=== PATIENT | male | born 1955 | race Caucasian/White ===

== ENCOUNTER → 2019-04-07 | Outpatient (CLI) | payer BC ==
[2019-04-07 12:32] VITALS: BP 147/92; PULSE 72; RESP 16
--- NOTE | 2019-04-11 14:07 | P.PAINCN ---
History of Present Illness - Reason for Consult Consult date: 04/07/19 - History of Present Illness This is a 63-year-old patient referred by Dr. Narayan with a chief complaint of chronic pain in bilateral low back with radiation to left buttock, hip, posterior thigh, left groin and top of left foot. Posterior leg pain is worse than anterior leg pain. Patient states that this pain started in December 2018, after he lifted a deer. He also states that he feels like his leg "wants to give out". He endorses bilateral feet numbness which is long-standing. Leg pain is worse than back pain. His primary care physician gave him a steroid dose pack as well as a left hip/greater trochanter injection which helped for approximately 7 days. Patient has been taking medications from primary care physician including gabapentin 300 mg 3 times a day, this was started recently, patient states is not helping. He was also prescribed [place] 7.5 mg 3 times a day when necessary, however he has not yet used this. Patient denies adverse drug effects from medications. Patient also denies new-onset weakness, bowel/bladder incontinence, or any other signs or symptoms of cauda equina syndrome. There are no signs of acute intoxication, and no indications of medication diversion or overuse. Patient has not had surgery. Patient has not had injections previously. Patient has not had physical therapy recently, he states he cannot afford it. In addition to above, 13-point review of systems is also negative for chest pain, shortness of breath, changes in vision, changes in hearing, new onset weakness, abdominal pain, diarrhea, extreme fatigue, malaise, fever, skin change s, homicidal or suicidal ideation, or bowel or bladder incontinence. Physical exam: Vital Signs: Reviewed in EMR GENERAL: Well appearing, in no acute distress PSYCH: Mood and affect is appropriate. Awake, alert, and oriented SKIN: Skin color, texture, turgor normal, no rashes or lesions HEENT: Normocephalic, atraumatic. EOM intact CV: No pedal edema RESP: Respirations are unlabored, no audible wheezing GI: Abdomen non-distended MUSCULOSKELETAL: Bilateral lower extremity strength is normal and symmetric. No atrophy or tone abnormalities are noted. Lumbar spine: Straight leg raising in the sitting position is positive on the left side for radicular pain. Tenderness to palpation over the lumbar spine and paraspinous muscles, on the left side. Positive for pain with facet loading and back extension/rotation. Extremities: Peripheral joint ROM is full and pain free without obvious instability or laxity in all four extremities. No edema or skin discolorations noted. Gait: Gait is normal NEUR: Bilateral lower extremity coordination and muscle stretch reflexes are physiologic and symmetric. Negative clonus. No loss of sensation is noted. Cranial nerves are grossly intact. Imaging: MRI lumbar spine done at [facility] on 03/19/2019 shows multilevel disc bulging and spondylosis with mild central canal stenosis at L3-4. At L3-4 there is moderate circumferential disc bulge, mild left and moderate right foraminal stenosis. At L4-5 mild circumferential disc bulge, moderate bilateral neuroforaminal stenosis, L5-S1 disc bulge with posterior annular fissure, mild to moderate bilateral foraminal stenosis. Assessment: 1. Lumbar radicular pain 2. Lumbar degenerative disc disease 3. Lumbar spondylosis Plan: 1. Explanation: Diagnoses, prognoses, and multiple treatment options including but not limited to physical therapy, interventional therapies, medication management and surgery were discussed with the patient and all questions were answered to the patient's satisfaction. 2. Investigations: MRI lumbar spine reviewed 3. Counseling: None 4. Procedures: We will schedule left-sided L4-5 and L5-S1 transforaminal epidural steroid injection. 5. Consultations: None 6. Medications: Managed by primary care physician, no changes 7. Disposition: For above-mentioned procedure I will have my note faxed over to referring provider, Dr. Barth office. Past Medical History Past Medical History: Cancer, Hyperlipidemia, Hypertension, Osteoarthritis (OA) Additional Past Medical History / Comment(s): BACK PAIN. PROSTATE CANCER History of Any Multi-Drug Resistant Organisms: None Reported Past Surgical History: Hernia Repair, Tonsillectomy Additional Past Surgical History / Comment(s): PROSTATECTOMY Past Anesthesia/Blood Transfusion Reactions: No Reported Reaction Smoking Status: Never smoker - Past Family History Mother Family Medical History: No Reported History Medications and Allergies Home Medications Medication Instructions Recorded Confirmed Type Aspirin [Adult Low Dose Aspirin EC] 81 mg PO DAILY 04/06/19 04/07/19 History Atorvastatin [Lipitor] 20 mg PO HS 04/06/19 04/07/19 History Gabapentin [Neurontin] 300 mg PO TID 04/06/19 04/07/19 History HYDROcodone/APAP 7.5-325MG [[place] 1 tab PO TID PRN 04/06/19 04/07/19 History 7.5-325] Methocarbamol [Robaxin] 750 mg PO TID PRN 04/06/19 04/07/19 History Metoprolol Tartrate [Lopressor] 25 mg PO BID 04/06/19 04/07/19 History Multivitamins, Thera [Multivitamin 1 tab PO DAILY 04/06/19 04/07/19 History (formulary)] amLODIPine [Norvasc] 10 mg PO DAILY 04/06/19 04/07/19 History Allergies Allergy/AdvReac Type Severity Reaction Status Date / Time No Known Allergies Allergy Verified 04/07/19 12:20 Physical Exam Vitals: Intake and Output 04/06/19 04/07/19 04/07/19 22:59 06:59 14:59 Other: Weight 95.254 kg PQRS Measure Charge Sheet Measure #130: Documentation of Current Meds in Medical Chart: Patient's medications documented in chart Measure #226: Tobacco Use: Screen & Cessation Intervention: Pt not a tobacco user Measure #111: Pneumonia Vaccination: Pneumococcal vaccine NOT administered or previously given Measure #47: Advance Care Plan: Advance care planning discussed & documented, pt chose/unable to give Measure #412: Opioid Treatment Agreement: No documentation of signed opioid treatment agreement Measure #408: Opioid Therapy Follow-up Evaluation: Patient had NO f/u eval minimum every 3 months during opioid therapy Measure #317: Preventitive Care & Scrn High Bld Press & F/U: Pre-hypertensive or hypertensive BP documented, pt will f/u with PCP Measure #128: Body Mass Index (BMI) Screening & Follow-up: BMI documented ABOVE normal parameters - f/u documented Measure #131: Pain Assessment & Follow-up: Pain positive & plan documented, Follow-up scheduled Measure #431: Unhealthy Alcohol Use Preventative Care & Scrn: Patient not identified as an unhealthy alcohol user PQRS Narrative: Smoking Status Never smoker Pain Intensity [Lower Back] 4 Scale Used Numeric (1 - 10) Hx Alcohol Use (MH) Yes: DRINKS DAILY Home Medications: Ambulatory Orders Aspirin [Adult Low Dose Aspirin EC] 81 mg PO DAILY 04/06/19 Atorvastatin [Lipitor] 20 mg PO HS 04/06/19 Gabapentin [Neurontin] 300 mg PO TID 04/06/19 HYDROcodone/APAP 7.5-325MG [[place] 7.5-325] 1 tab PO TID PRN 04/06/19 Methocarbamol [Robaxin] 750 mg PO TID PRN 04/06/19 Metoprolol Tartrate [Lopressor] 25 mg PO BID 04/06/19 Multivitamins, Thera [Multivitamin (formulary)] 1 tab PO DAILY 04/06/19 amLODIPine [Norvasc] 10 mg PO DAILY 04/06/19
== END | disposition home or self-care (01) ==
LOC: PNWHC3 11:49
PROVIDERS: ATTEND Anesthesiology
DX: G89.29 Other chronic pain (principal); M51.16 Intervertebral disc disorders with radiculopathy, lumbar region; M47.26 Other spondylosis with radiculopathy, lumbar region; Z79.82 Long term (current) use of aspirin; Z79.899 Other long term (current) drug therapy
CPT/HCPCS: 99201

== ENCOUNTER 2019-04-14 07:28 | Day surgery (SDC) | payer BC ==
[2019-04-13 12:04] VITALS: BMI 31.9
[~2019-04-14 07:28] MED LIST: LACTATED RINGERS 1,000 ML IV SCH
[2019-04-14 08:14] VITALS: RESP 16; TEMP 97.8
[2019-04-14] MEDS ORDERED: LACTATED RINGERS 1,000 ML IV ONE (08:16)
[2019-04-14] MEDS ORDERED: LIDOCAINE 1% 20 ML VIAL (10MG/ML) FOR IV START INTRADERMA ONE (08:17)
[2019-04-14] MEDS ORDERED: IOPAMIDOL M200 10 ML VIAL ONE (09:17)
[2019-04-14] MEDS ORDERED: fentaNYL (PF) 50 MCG/ML 2 ML AMP ONE (09:17)
[2019-04-14] MEDS ORDERED: methylPREDNISolone ACETATE 40 MG/ML 1 ML VIAL ONE (09:17)
[2019-04-14] MEDS ORDERED: MIDAZOLAM 2 MG/2 ML VIAL ONE (09:17)
--- NOTE | 2019-04-14 09:33 | P.PCN ---
Date of Procedure: 04/14/19 Procedure(s) Performed: PREOPERATIVE DIAGNOSIS: 1-Lumbar radiculopathy. 2-lumbar degenerative disc disease. 3-lumbar spondylosis with lumbar facet arthropathy POSTOPERATIVE DIAGNOSIS: Same as preop diagnosis PROCEDURE 1. Transforaminal epidural steroid injection under fluoroscopic guidance at left-sided L4 5, and L5-S1 (Fluoroscopy images stored on file in the radiology Department ) 2. Lumbar epidurogram : ANESTHESIA: Local with 1% lidocaine 3 ml , moderate sedation with intravenous Ve rsed 2 mg and fentanyle 50 micrograms EBL: Minimal PROCEDURE INDICATION: The patient with low back pain and radiculopathy symptoms unresponsive to conservative treatment. PROCEDURE DESCRIPTION / TECHNIQUE: The patient was seen and identified in the preoperative area. Risks, benefits, complications, and alternatives were discussed with the patient. The patient agreed to proceed with the procedure and signed the consent. IV was started, and vital signs were stable. Patient was taken to the OR and time out was completed. The patient was placed in the prone position on procedure table and a pillow was placed under the abdomen to reduce lumbar lordosis. The lumbosacral area was prepped and draped in the usual sterile fashion. Critical pause was taken. Vital signs were closely monitored during the procedure. Conscious sedation was used during the procedure to decrease patient s anxiety. Using oblique fluoroscopy, the chin of the ``[place] dog at left L4 5 level was identified, and the skin and deeper tissues just below was localized with 1% lidocaine. Subsequently, a 22-gauge 3.5-inch spinal needle was advanced under a tunneled view fluoroscopic guidance just underneath the chin of the `[place] dog at the left L4 5. Under lateral fluoroscopy, the needle was then advanced to the posterior border of the left L4 5 interforaminal space. After negative aspiration of CSF and blood and with no paresthesias, 1 mL Isovue 200 contrast dye was injected excellent epidurogram and outlining of the nerve root Subsequently, 3 mL of block solution containing 40 mg Depo-Medrol and 2 mL of Lidocaine 1% was injected. Needle was removed and the same procedure was repeated at the left L5-S1 level (s). At the end of the procedure, skin was cleansed, and bandages were applied. COMPLICATIONS:none DISPOSITION / PLANS: The patient was placed in a supine position and transferred to the recovery area in a stable condition for observation. There was no evidence of lower extremity motor or sensory deficit after the procedure. Patient was discharged from the recovery room after meeting discharge criteria. Home discharge instructions were given to the patient by the staff. The patient was reexamined prior to discharge.
--- NOTE | 2019-04-14 09:44 | FL ---
EXAMINATION TYPE: FL guided pain mgmt statistic DATE OF EXAM: 04/14/2019 CLINICAL HISTORY: Low back pain. TECHNIQUE: Fluoroscopy. COMPARISON: None. FINDINGS: Fluoroscopic guidance was provided during pain relief procedure performed by Dr. Sparks . A total of 6 seconds of fluoroscopic time was utilized during the procedure and single spot image is acquired. Single image acquired shows needle localization right L4 and L5 levels with contrast in jection. IMPRESSION: As Above.
[2019-04-14 09:57] VITALS: BP 136/77; PULSE 67
[2019-04-14] MEDS ORDERED: IV FLUID CONTINUATION 1,000 ML IV ONE (09:58)
== END 2019-04-14 09:59 | disposition home or self-care (01) ==
LOC: ORPAIN 07:28
PROVIDERS: ATTEND Specialist
DX: M51.16 Intervertebral disc disorders with radiculopathy, lumbar region (principal); M47.26 Other spondylosis with radiculopathy, lumbar region
CPT/HCPCS: 64483; 64484; J2250; J1030; J3010; Q9966; 99152

== ENCOUNTER 2019-04-28 07:11 | Day surgery (SDC) | payer BC ==
[2019-04-27 10:37] VITALS: BMI 31.4
[2019-04-28 07:33] VITALS: RESP 16; TEMP 98.2
[2019-04-28] MEDS ORDERED: LIDOCAINE 1% (10MG/ML) FOR IV START INTRADERMA ONE (07:42)
--- NOTE | 2019-04-28 08:09 | P.GSHP ---
History of Present Illness H&P Date: 04/28/19 This is 63 years old male with a chronic history of severe low back pain with radiation to the lower extremity is diagnosed with lumbar radiculopathy and is here today to have transforaminal epidural steroid injection at L4 5 and L5-S1 on the left side Past Medical History Past Medical History: Cancer, Hyperlipidemia, Hypertension, Musculoskeletal Disorder, Osteoarthritis (OA) Additional Past Medical History / Comment(s): BACK PAIN & lt leg pain. PROSTATE CANCER History of Any Multi-Drug Resistant Organisms: None Reported Past Surgical History: Hernia Repair, Tonsillectomy Additional Past Surgical History / Comment(s): PROSTATECTOMY, umbilical hernia, Pain proc 04/14/19 Past Anesthesia/Blood Transfusion Reactions: No Reported Reaction Smoking Status: Never smoker - Past Family History Mother Family Medical History: No Reported History Medications and Allergies Home Medications Medication Instructions Recorded Confirmed Type Aspirin [Adult Low Dose Aspirin EC] 81 mg PO HS 04/06/19 04/28/19 History Atorvastatin [Lipitor] 20 mg PO HS 04/06/19 04/28/19 History Gabapentin [Neurontin] 300 mg PO TID PRN 04/06/19 04/28/19 History HYDROcodone/APAP 7.5-325MG [[place] 1 tab PO TID PRN 04/06/19 04/28/19 History 7.5-325] Methocarbamol [Robaxin] 750 mg PO TID PRN 04/06/19 04/28/19 History Metoprolol Tartrate [Lopressor] 25 mg PO BID 04/06/19 04/28/19 History Multivitamins, Thera [Multivitamin 1 tab PO DAILY 04/06/19 04/28/19 History (formulary)] amLODIPine [Norvasc] 10 mg PO HS 04/06/19 04/28/19 History Allergies Allergy/AdvReac Type Severity Reaction Status Date / Time No Known Allergies Allergy Verified 04/28/19 07:30 Surgical - Exam Vital Signs Temp Pulse Resp BP Pulse Ox 98.2 F 73 16 150/83 98 04/28/19 07:25 04/28/19 07:25 04/28/19 07:25 04/28/19 07:25 04/28/19 07:25 Vital Signs: Reviewed in EMR GENERAL: Well appearing, in no acute distress PSYCH: Mood and affect is appropriate. Awake, alert, and oriented SKIN: Skin color, texture, turgor normal, no rashes or lesions HEENT: Normocephalic, atraumatic. EOM intact CV: No pedal edema RESP: Respirations are unlabored, no audible wheezing GI: Abdomen non-distended MUSCULOSKELETAL: Bilateral lower extremity strength is normal and symmetric. No atrophy or tone abnormalities are noted. Lumbar spine: Straight leg raising in the sitting position is positive on the left side for radicular pain. Tenderness to palpation over the lumbar spine and paraspinous muscles, on the left side. Positive for pain with facet loading and back extension/rotation. Extremities: Peripheral joint ROM is full and pain free without obvious instability or laxity in all four extremities. No edema or skin discolorations noted. Gait: Gait is normal NEUR: Bilateral lower extremity coordination and muscle stretch reflexes are physiologic and symmetric. Negative clonus. No loss of sensation is noted. Cranial nerves are grossly intact. Assessment and Plan Plan: Assessment and plan=1-lumbar radiculopathy . 2-lumbar spondylosis with lumbar facet arthropathy. 3-lumbar degenerative disc disease. Patient here today to have repeat transforaminal epidural steroid injection at L4 5 ,and L5-S1 on the left side Time with Patient: Less than 30
[2019-04-28] MEDS ORDERED: IOPAMIDOL M200 10 ML VIAL ONE (08:18)
[2019-04-28] MEDS ORDERED: fentaNYL (PF) 50 MCG/ML 2 ML AMP ONE (08:18)
[2019-04-28] MEDS ORDERED: MIDAZOLAM 2 MG/2 ML VIAL ONE (08:18)
[2019-04-28] MEDS ORDERED: methylPREDNISolone ACETATE 40 MG/ML 1 ML VIAL ONE (08:18)
--- NOTE | 2019-04-28 08:31 | P.PCN ---
Date of Procedure: 04/28/19 Procedure(s) Performed: PREOPERATIVE DIAGNOSIS: 1-Lumbar radiculopathy. 2-lumbar degenerative disc disease. 3-lumbar spondylosis with lumbar facet arthropathy POSTOPERATIVE DIAGNOSIS: Same as preop diagnosis PROCEDURE 1. Transforaminal epidural steroid injection under fluoroscopic guidance at left-sided L4 5, and L5-S1 (Fluoroscopy images stored on file in the radiology Department ) 2. Lumbar epidurogram : ANESTHESIA: Local with 1% lidocaine 3 ml , moderate sedation with intravenous Ve rsed 2 mg and fentanyle 50 micrograms EBL: Minimal PROCEDURE INDICATION: The patient with low back pain and radiculopathy symptoms unresponsive to conservative treatment. PROCEDURE DESCRIPTION / TECHNIQUE: The patient was seen and identified in the preoperative area. Risks, benefits, complications, and alternatives were discussed with the patient. The patient agreed to proceed with the procedure and signed the consent. IV was started, and vital signs were stable. Patient was taken to the OR and time out was completed. The patient was placed in the prone position on procedure table and a pillow was placed under the abdomen to reduce lumbar lordosis. The lumbosacral area was prepped and draped in the usual sterile fashion. Critical pause was taken. Vital signs were closely monitored during the procedure. Conscious sedation was used during the procedure to decrease patient s anxiety. Using oblique fluoroscopy, the chin of the ``[place] dog at left L4 5 level was identified, and the skin and deeper tissues just below was localized with 1% lidocaine. Subsequently, a 22-gauge 3.5-inch spinal needle was advanced under a tunneled view fluoroscopic guidance just underneath the chin of the `[place] dog at the left L4 5. Under lateral fluoroscopy, the needle was then advanced to the posterior border of the left L4 5 interforaminal space. After negative aspiration of CSF and blood and with no paresthesias, 1 mL Isovue 200 contrast dye was injected excellent epidurogram and outlining of the nerve root Subsequently, 3 mL of block solution containing 40 mg Depo-Medrol and 2 mL of Lidocaine 1% was injected. Needle was removed and the same procedure was repeated at the left L5-S1 level (s). At the end of the procedure, skin was cleansed, and bandages were applied. COMPLICATIONS:none DISPOSITION / PLANS: The patient was placed in a supine position and transferred to the recovery area in a stable condition for observation. There was no evidence of lower extremity motor or sensory deficit after the procedure. Patient was discharged from the recovery room after meeting discharge criteria. Home discharge instructions were given to the patient by the staff. The patient was reexamined prior to discharge.
[2019-04-28] MEDS ORDERED: IV FLUID CONTINUATION 1,000 ML IV ONE (08:36)
--- NOTE | 2019-04-28 08:56 | FL ---
EXAMINATION TYPE: FL guided pain mgmt statistic DATE OF EXAM: 04/28/2019 CLINICAL HISTORY: Low back pain. TECHNIQUE: Fluoroscopy. COMPARISON: None. FINDINGS: Fluoroscopic guidance was provided during pain relief procedure performed by Dr. Sparks . A total of 6 seconds of fluoroscopic time was utilized during the procedure and two spot images ar e acquired. Images acquired shows needle localization in the lower lumbar spine off the midline. IMPRESSION: As Above.
[2019-04-28 08:57] VITALS: BP 126/70; PULSE 62
== END 2019-04-28 09:05 ==
LOC: ORPAIN 07:11
PROVIDERS: ATTEND Specialist
DX: G89.29 Other chronic pain (principal); M51.16 Intervertebral disc disorders with radiculopathy, lumbar region; M47.26 Other spondylosis with radiculopathy, lumbar region; Z90.79 Acquired absence of other genital organ(s); Z85.46 Personal history of malignant neoplasm of prostate; I10 Essential (primary) hypertension; E78.5 Hyperlipidemia, unspecified; M19.90 Unspecified osteoarthritis, unspecified site; Z90.89 Acquired absence of other organs; Z98.890 Other specified postprocedural states; Z79.82 Long term (current) use of aspirin; Z79.899 Other long term (current) drug therapy
CPT/HCPCS: 64483; 64484; J2250; J1030; J3010; Q9966; 99152

== ENCOUNTER → 2019-08-03 | Outpatient (CLI) | payer BC ==
[2019-08-03 13:50] VITALS: BP 148/73; PULSE 66; RESP 16
--- NOTE | 2019-08-03 14:54 | P.PAINPG ---
Subjective Progress Note Date: 08/03/19 This is a 64-year-old patient who presents for follow-up visit with a chief complaint of chronic pain in bilateral low back with radiation to left buttock, hip, posterior thigh, left groin and top of left foot. He was diagnosed with lumbar radicular pain, lumbar degenerative disc disease, lumbar spondylosis. He underwent left-sided L4-5 and L5-S1 transforaminal epidural steroid injections on 04/14/2019 and 04/28/2019. He returns today for follow-up. He reports good relief from these procedures lasting 2-4 weeks. Today, his pain is located in the left lower back, radiating to left hip, left posterior thigh and calf. Pain is rated as 2-6/10, described as constant dull aching. He endorses numbness and tingling in bilateral feet. Pain is worse with sitting and activity and better with medications and procedures. He continues to work on [address] [employer] of [employer]. Patient has been taking medications from primary care physician including ibuprofen 800 mg every 8 hours when necessary, gabapentin 300 mg 3 times a day, [place] 7.5 mg 3 times a day when necessary. Patient denies adverse drug effects from medications. He takes the [place] infrequently. Patient also denies new- onset weakness, bowel/bladder incontinence, or any other signs or symptoms of cauda equina syndrome. There are no signs of acute intoxication, and no indications of medication diversion or overuse. In addition to above, 13-point review of systems is also negative for chest pain, shortness of breath, changes in vision, changes in hearing, new onset weakness, abdominal pain, diarrhea, extreme fatigue, malaise, fever, skin changes, homicidal or suicidal ideation, or bowel or bladder incontinence. Physical exam: Vital Signs: Reviewed in EMR GENERAL: Well appearing, in no acute distress PSYCH: Mood and affect is appropriate. Awake, alert, and oriented SKIN: Skin color, texture, turgor normal, no rashes or lesions HEENT: Normocephalic, atraumatic. EOM intact CV: No pedal edema RESP: Respirations are unlabored, no audible wheezing GI: Abdomen non-distended MUSCULOSKELETAL: Bilateral lower extremity strength is normal and symmetric. No atrophy or tone abnormalities are noted. Lumbar spine: Straight leg raising in the sitting position is positive on the left side for radicular pain. Tenderness to palpation over the lumbar spine and paraspinous muscles, on the left side. Positive for pain with facet loading and back extension/rotation. Extremities: Peripheral joint ROM is full and pain free without obvious instability or laxity in all four extremities. No edema or skin discolorations noted. Gait: Gait is normal NEUR: Bilateral lower extremity coordination and muscle stretch reflexes are physiologic and symmetric. Negative clonus. No loss of sensation is noted. Cranial nerves are grossly intact. Imaging: MRI lumbar spine done at [facility] on 03/19/2019 shows multilevel disc bulging and spondylosis with mild central canal stenosis at L3-4. At L3-4 there is moderate circumferential disc bulge, mild left and moderate right foraminal stenosis. At L4-5 mild circumferential disc bulge, moderate bilateral neuroforaminal stenosis, L5-S1 disc bulge with posterior annular fissure, mild to moderate bilateral foraminal stenosis. Assessment: 1. Lumbar radicular pain 2. Lumbar degenerative disc disease 3. Lumbar spondylosis Plan: 1. Investigations: MRI lumbar spine reviewed 2. Procedures: We will schedule left paramedian lumbar epidural steroid injection at L3-4 level 3. Medications: Patient was instructed to have a discussion with his primary care physician regarding increase gabapentin dose. Would recommend increasing gradually to 600 mg 3 times a day. 4. Disposition: For above-mentioned procedure PQRS Measure Charge Sheet Measure #130: Documentation of Current Meds in Medical Chart: Patient's medications documented in chart Measure #226: Tobacco Use: Screen & Cessation Intervention: Pt not a tobacco user Measure #111: Pneumonia Vaccination: Pneumococcal vaccine administered or previously received Measure #47: Advance Care Plan: Advance care planning discussed & documented, pt chose/unable to give Measure #412: Opioid Treatment Agreement: No documentation of signed opioid treatment agreement Measure #408: Opioid Therapy Follow-up Evaluation: Patient had NO f/u eval minimum every 3 months during opioid therapy Measure #317: Preventitive Care & Scrn High Bld Press & F/U: Pre-hypertensive or hypertensive BP documented, pt will f/u with PCP Measure #128: Body Mass Index (BMI) Screening & Follow-up: BMI documented ABOVE normal parameters - f/u documented Measure #131: Pain Assessment & Follow-up: Pain positive & plan documented, Follow-up scheduled Measure #431: Unhealthy Alcohol Use Preventative Care & Scrn: Patient not identified as an unhealthy alcohol user PQRS Narrative: Smoking Status Never smoker Pain Intensity [Left Lower 4 Back] Hx Alcohol Use (MH) Yes: DRINKS DAILY Home Medications: Ambulatory Orders Aspirin [Adult Low Dose Aspirin EC] 81 mg PO HS 04/06/19 Atorvastatin [Lipitor] 20 mg PO HS 04/06/19 Gabapentin [Neurontin] 300 mg PO TID PRN 04/06/19 HYDROcodone/APAP 7.5-325MG [[place] 7.5-325] 1 tab PO TID PRN 04/06/19 Methocarbamol [Robaxin] 750 mg PO TID PRN 04/06/19 Metoprolol Tartrate [Lopressor] 25 mg PO BID 04/06/19 Multivitamins, Thera [Multivitamin (formulary)] 1 tab PO DAILY 04/06/19 amLODIPine [Norvasc] 10 mg PO HS 04/06/19 Ibuprofen [Motrin] 800 mg PO Q8H PRN 08/01/19 Controlled Substance Measures - Controlled Substance Measures Is patient prescribed a controlled substance at discharge?: No
== END | disposition home or self-care (01) ==
LOC: PNWHC3 13:26
PROVIDERS: ATTEND Anesthesiology
DX: M51.16 Intervertebral disc disorders with radiculopathy, lumbar region (principal); M47.26 Other spondylosis with radiculopathy, lumbar region; Z79.891 Long term (current) use of opiate analgesic; Z79.899 Other long term (current) drug therapy; Z79.82 Long term (current) use of aspirin
CPT/HCPCS: 99211

== ENCOUNTER → 2019-08-16 | Day surgery (SDC) | payer BC ==
[2019-08-12 15:21] VITALS: BMI 31.4
[~2019-08-16] MED LIST changes: +IOPAMIDOL M200 10 ML VIAL ONE; +IV FLUID CONTINUATION 1,000 ML IV ONE; +LIDOCAINE 1% (10MG/ML) FOR IV START INTRADERMA ONE; +MIDAZOLAM 2 MG/2 ML VIAL ONE; +fentaNYL (PF) 50 MCG/ML 2 ML AMP ONE; +methylPREDNISolone ACETATE 80 MG/ML 1 ML VIAL ONE
[2019-08-16 08:36] VITALS: RESP 16; TEMP 97.6
[2019-08-16 10:04] VITALS: BP 127/71; PULSE 60
--- NOTE | 2019-08-16 11:54 | P.PCN ---
Date of Procedure: 08/16/19 Procedure(s) Performed: PREOPERATIVE DIAGNOSIS: 1- Lumbar radiculopathy, Lumbar Degenerative Disc Diseases 2-Lumbar spondylosis with Facet arthropathy without myelopathy POSTOPERATIVE DIAGNOSIS: 1-Lumber Degenerative Disc Diseases 2-Lumbar spondylosis with Facet arthropathy without myelopathy PROCEDURE 1. Lumbar epidural steroid injection under fluoroscopic guidance at the L3- 4 level using a left paramedian approach 2. Lumbar epidurogram. ANESTHESIA: Local with 1% lidocaine 3 ml, moderate sedation with intravenous Versed and fentanyl, sedation time 10 Minutes Fluoroscopy was used for the procedure and images were saved in the radiology portion of the chart. EBL: Minimal PROCEDURE INDICATION: The patient with low back pain and radiculitis symptoms unresponsive to conservative treatment. Fluoroscopy was used to optimize visualization of the needle placement and to maximize safety. PROCEDURE DESCRIPTION / TECHNIQUE: The patient was seen and identified in the preoperative area. Risks, benefits, complications including but not limited to infections ,bleeding ,allergic reaction to the medications ,nerve damage and incomplete pain releif , and alternatives were discussed with the patient. The patient agreed to proceed with the procedure and signed the consent. IV was started, and vital signs were stable. Patient was taken to the OR and time out was completed. The patient was placed in the prone position on procedure table and a pillow was placed under the abdomen to reduce lumbar lordosis. The lumbosacral area was prepped and draped in the usual sterile fashion. Vitals were closely monitored during the procedure. Conscious sedation was used during the procedure to decrease patients anxiety. Using anterior-posterior fluoroscopy, the L3-4 interlaminar space was identified and the skin over this site was marked and then infiltrated with 1% lidocaine subcutaneously. Subsequently, a 20-gauge 3.5" Tuohy epidural needle was inserted and advanced toward the epidural space using the loss of resistance technique and guided by AP and lateral/ oblique fluoroscopy. The correct needle position in the epidural space was verified with the injection of 2 mL of the water soluble contrast dye Isovue 200 contrast under live fluoroscopy, observing an excellent epidurogram. Then, after negative aspiration for blood and CSF and in the absence of paresthesias, a 5 ml mixture containing 80 mg of Depo-medrol , 3 ml of preservative free Normal Saline, and 1 ml of preservative free lidocaine 1% solution was injected and a washout epidurogram was seen. Needle was withdrawn intact, skin was cleansed, and bandages were applied. COMPLICATIONS: None DISPOSITION / PLANS: The patient was placed in a supine position and transferred to the recovery area in a stable condition for observation. There was no evidence of lower extremity motor or sensory deficit after the procedure. Patient was discharged from the recovery room after meeting discharge criteria. Home discharge instructions were given to the patient by the staff. The patient will schedule a follow up in the clinic in 2-4 weeks.
--- NOTE | 2019-08-16 12:29 | FL ---
Fluoroscopy HISTORY: Pain 6 seconds fluoroscopy time supplied to the referring clinician. 3 intraoperative C-arm images docume nt the procedure. See dictated report from anesthesia.
== END ==
LOC: ORPAIN 08:12
PROVIDERS: ATTEND Anesthesiology
DX: G89.29 Other chronic pain (principal); M51.16 Intervertebral disc disorders with radiculopathy, lumbar region; M47.26 Other spondylosis with radiculopathy, lumbar region; Z79.1 Long term (current) use of non-steroidal anti-inflammatories (NSAID); Z79.899 Other long term (current) drug therapy
CPT/HCPCS: 62323; J2250; J1040; J3010; Q9966; 99152

== ENCOUNTER → 2019-09-14 | Outpatient (CLI) | payer BC ==
[2019-09-14 14:07] VITALS: BP 143/93; PULSE 63; RESP 16
--- NOTE | 2019-09-14 14:26 | P.PAINPG ---
Subjective Progress Note Date: 09/14/19 This is a 64-year-old patient who presents for follow-up visit with a chief complaint of chronic pain in bilateral low back with radiation to left buttock, hip, posterior thigh, left groin and top of left foot. He was diagnosed with lumbar radicular pain, lumbar degenerative disc disease, lumbar spondylosis. He underwent lumbar epidural steroid injection at L3-4 on 08/16/2019. He returns today for follow-up. He reports good relief from this procedure, lasting approximately 3 weeks. In the past, he has undergone left-sided L4-5 and L5-S1 transforaminal epidural steroid injections with benefit lasting 2-4 weeks. Today, his pain is located in the left lower back, radiating to left hip, left posterior thigh and calf. Pain is rated as 2-4/10, described as constant, sharp, aching. He endorses numbness and tingling in bilateral feet. Pain is worse with sitting and activity and better with medications and procedures. He continues to work on [employer] and [employer] and [email or web address]. Patient has been taking medications from primary care physician including ibuprofen 800 mg every 8 hours when necessary, gabapentin 300 mg 3 times a day, [place] 7.5 mg 3 times a day when necessary. Patient denies adverse drug effects from medications. He takes the [place] infrequently. Patient also denies new- onset weakness, bowel/bladder incontinence, or any other signs or symptoms of cauda equina syndrome. There are no signs of acute intoxication, and no indications of medication diversion or overuse. In addition to above, 13-point review of systems is also negative for chest pain, shortness of breath, changes in vision, changes in hearing, new onset weakness, abdominal pain, diarrhea, extreme fatigue, malaise, fever, skin changes, homicidal or suicidal ideation, or bowel or bladder incontinence. Physical exam: Vital Signs: Reviewed in EMR GENERAL: Well appearing, in no acute distress PSYCH: Mood and affect is appropriate. Awake, alert, and oriented SKIN: Skin color, texture, turgor normal, no rashes or lesions HEENT: Normocephalic, atraumatic. EOM intact CV: No pedal edema RESP: Respirations are unlabored, no audible wheezing GI: Abdomen non-distended MUSCULOSKELETAL: Bilateral lower extremity strength is normal and symmetric. No atrophy or tone abnormalities are noted. Lumbar spine: Straight leg raising in the sitting position is positive on the left side for radicular pain. Tenderness to palpation over the lumbar spine and paraspinous muscles, on the left side. Positive for pain with facet loading and back extension/rotation. Extremities: Peripheral joint ROM is full and pain free without obvious instability or laxity in all four extremities. No edema or skin discolorations noted. Gait: Gait is normal NEUR: No loss of sensation is noted. Cranial nerves are grossly intact. Imaging: MRI lumbar spine done at [facility] on 03/19/2019 shows multilevel disc bulging and spondylosis with mild central canal stenosis at L3-4. At L3-4 there is moderate circumferential disc bulge, mild left and moderate right foraminal stenosis. At L4-5 mild circumferential disc bulge, moderate bilateral neuroforaminal stenosis, L5-S1 disc bulge with posterior annular fissure, mild to moderate bilateral foraminal stenosis. Assessment: 1. Lumbar radicular pain 2. Lumbar degenerative disc disease 3. Lumbar spondylosis Plan: 1. Investigations: MRI lumbar spine reviewed 2. Procedures: We will schedule repeat left paramedian lumbar epidural steroid injection at L3-4 level. If short-lived benefit from this, would consider lumbar medial branch block at L3, L4, L5 on the left side 3. Medications: He had a discussion with his neurologist about increasing gabapentin, however reports that they would not like to do this and would like us to take over her prescriptions. I agreed to do this. Narcotic consent was signed, urine drug screen sent, I will increase gabapentin from 300 mg 3 times a day to 600 mg 3 times a day. Prescription was given for this with one refill. Titration schedule was provided. 4. Disposition: For above-mentioned procedure and In 2 months for medication management PQRS Measure Charge Sheet Measure #130: Documentation of Current Meds in Medical Chart: Patient's medications documented in chart Measure #226: Tobacco Use: Screen & Cessation Intervention: Pt not a tobacco user Measure #111: Pneumonia Vaccination: Pneumococcal vaccine NOT administered or previously given Measure #47: Advance Care Plan: Advance care planning discussed & documented, pt chose/unable to give Measure #412: Opioid Treatment Agreement: Documented signed opioid trtmnt agreemnt min once during opioid trtmnt Measure #408: Opioid Therapy Follow-up Evaluation: Patient had f/u eval minimum every 3 months during opioid therapy Measure #317: Preventitive Care & Scrn High Bld Press & F/U: Pre-hypertensive or hypertensive BP documented, pt will f/u with PCP Measure #128: Body Mass Index (BMI) Screening & Follow-up: BMI documented ABOVE normal parameters - f/u documented Measure #131: Pain Assessment & Follow-up: Pain positive & plan documented, Follow-up scheduled Measure #431: Unhealthy Alcohol Use Preventative Care & Scrn: Patient not i dentified as an unhealthy alcohol user PQRS Narrative: Smoking Status Never smoker Pain Intensity [Lower Back] 5 Scale Used Numeric (1 - 10) Hx Alcohol Use (MH) Yes: DRINKS DAILY Home Medications: Ambulatory Orders Aspirin [Adult Low Dose Aspirin EC] 81 mg PO HS 04/06/19 Atorvastatin [Lipitor] 20 mg PO HS 04/06/19 HYDROcodone/APAP 7.5-325MG [[place] 7.5-325] 1 tab PO TID PRN 04/06/19 Metoprolol Tartrate [Lopressor] 25 mg PO BID 04/06/19 Multivitamins, Thera [Multivitamin (formulary)] 1 tab PO DAILY 04/06/19 amLODIPine [Norvasc] 10 mg PO HS 04/06/19 Ibuprofen [Motrin] 800 mg PO Q8H PRN 08/01/19 Gabapentin [Neurontin] 600 mg PO TID PRN 30 Days #180 cap 09/14/19 Controlled Substance Measures - Controlled Substance Measures Is patient prescribed a controlled substance at discharge?: Yes When asked, does pt state using other controlled substances?: No If prescribed controlled substance>3 days was MAPS reviewed?: Yes If Rx opioid, was Start Talking consent form obtained?: Yes If opioid is for acute pain is fill amount 7 days or less?: No Was information provided regarding opioid addiction?: Yes
== END | disposition home or self-care (01) ==
LOC: PNWHC3 13:19
PROVIDERS: ATTEND Anesthesiology
DX: M51.16 Intervertebral disc disorders with radiculopathy, lumbar region (principal); M47.26 Other spondylosis with radiculopathy, lumbar region; Z79.891 Long term (current) use of opiate analgesic; Z79.899 Other long term (current) drug therapy; Z79.82 Long term (current) use of aspirin
CPT/HCPCS: 80307; 99211; G0482

== ENCOUNTER 2019-10-06 07:43 | Day surgery (SDC) | payer BC ==
[2019-09-30 13:05] VITALS: BMI 31.4
[2019-10-06] MEDS ORDERED: LACTATED RINGERS 1,000 ML IV SCH (08:15)
[2019-10-06 08:21] VITALS: RESP 16; TEMP 97
[2019-10-06] MEDS ORDERED: methylPREDNISolone ACETATE 40 MG/ML 1 ML VIAL ONE (09:35)
[2019-10-06] MEDS ORDERED: IOPAMIDOL M200 10 ML VIAL ONE (09:35)
[2019-10-06] MEDS ORDERED: fentaNYL (PF) 50 MCG/ML 2 ML AMP ONE (09:35)
[2019-10-06] MEDS ORDERED: MIDAZOLAM 2 MG/2 ML VIAL ONE (09:35)
--- NOTE | 2019-10-06 09:52 | P.PCN ---
Date of Procedure: 10/06/19 Description of Procedure: PREOPERATIVE DIAGNOSIS: Lumbar radiculopathy POSTOPERATIVE DIAGNOSIS: Same PROCEDURE PERFORMED: Interlaminar Epidural Steroid Injection at the L3-L4 level, with a left paramedian approach under fluoroscopic guidance SURGEON: Anup Tran MD ANESTHESIA: Local with 1% lidocaine 3 ml and IV sedation with Versed and fentanyl, sedation time 11 minutes Fluoroscopy was used for the procedure and images were saved in the radiology portion of the chart. EBL: Minimal PROCEDURE INDICATION: The patient presents with lumbar radicular symptoms unresponsive to conservative treatment. This is the second lumbar epidural steroid injection PROCEDURE DESCRIPTION / TECHNIQUE: The patient was seen and identified in the preoperative area. Risks, benefits, complications including but not limited to infections ,bleeding ,allergic reaction to the medications ,nerve damage and incomplete pain relief, and alternatives were discussed with the patient. The patient agreed to proceed with the procedure and signed the consent. IV was started, and vital signs were stable. Patient was taken to the OR and time out was completed. The patient was placed in the prone position on procedure table and a pillow was placed under the chest area. The cervical area was prepped and draped in the usual sterile fashion. Conscious sedation was used during the procedure to decrease patients anxiety. Vital signs was monitored during the entire procedure. Using anterior-posterior fluoroscopy, the [] interlaminar space was identified and the skin over this site was marked and then infiltrated with 1% lidocaine subcutaneously. Subsequently, a 20-gauge Tuohy epidural needle was inserted and advanced toward the epidural space using the loss of resistance technique and guided by AP and lateral views. The correct needle position in the epidural space was verified. After negative aspiration for blood and CSF and in the absence of paresthesias, Isovue 200 2 mL's was injected under live fluoroscopy with good epidural spread. After negative aspiration, a 5 mL mixture containing 40 mg Depo-Medrol, 3 mL of preservative-free normal saline, 1 mL 1% lidocaine. Needle was withdrawn intact, skin was cleansed, and bandages were applied. COMPLICATIONS: None DISPOSITION / PLANS: The patient was placed in a supine position and transferred to the recovery area in a stable condition for observation. There was no evidence of lower extremity motor or sensory deficit after the procedure. Patient was discharged from the recovery room after meeting discharge criteria. Home discharge instructions were given to the patient by the staff. The patient will be scheduled a [follow up/repeat procedure] in the clinic in 2-4 weeks.
[2019-10-06] MEDS ORDERED: IV FLUID CONTINUATION 1,000 ML IV ONE (10:00)
[2019-10-06 10:18] VITALS: BP 129/76; PULSE 67
--- NOTE | 2019-10-06 11:20 | FL ---
EXAMINATION TYPE: FL guided pain mgmt statistic DATE OF EXAM: 10/06/2019 FLUOROSCOPY Fluoroscopy time of 22 seconds was used during pain management procedure of the upper lumbar spine. O ne image document/s the procedure.
== END 2019-10-06 10:38 | disposition home or self-care (01) ==
LOC: ORPAIN 07:43
PROVIDERS: ATTEND Anesthesiology
DX: M54.16 Radiculopathy, lumbar region (principal); Z79.82 Long term (current) use of aspirin
CPT/HCPCS: 62323; J2250; J1030; J3010; Q9966; 99152

== ENCOUNTER → 2019-10-31 | Outpatient (CLI) | payer BC ==
--- NOTE | 2019-10-31 10:12 | P.PN ---
Subjective Progress Note Date: 10/31/19 This is a 64-year-old gentleman with history of chronic lower back pain with radiation to the left leg occasionally down to the left ankle however he denies any numbness in the leg except for across his toes which has been there for quite sometime. He occasionally feels some weakness in his left leg over this is not a constant complaint. He had multiple lumbar epidural steroid injection with very good response to it. He has more pain on the left side of his lower back than his right side. He denies any bowel or bladder dysfunction and denies taking any anticoagulants except for baby aspirin a day. Patient denies new-onset weakness, bowel/bladder incontinence, or any other signs or symptoms of cauda equina syndrome. There are no signs of acute intoxication, and no indications of medication diversion or overuse. In addition to above, 13-point review of systems is also negative for chest pain, shortness of breath, changes in vision, changes in hearing, new onset weakness, abdominal pain, diarrhea, extreme fatigue, malaise, fever, skin changes, homicidal or suicidal ideation, or bowel or bladder incontinence. Vital Signs: Reviewed in EMR Gen: AAOx3, NAD HEENT: PERRLA,hearing grossly normal Pulm: resp unlabored Heart: Regular Neck: supple, trachea midline Neuro exam of the lower extremities: Normal muscle strength Straight leg raising test: Negative bilaterally Emile's test: Range of motion of the lumbar spine: Facet loading test: Positive Tenderness in the paravertebral musculature: Positive on the left side of his lumbar spine Neuro: CN II-XII grossly intact, Imaging: Reviewed in EMR/chart Assessment: Lumbar spondylosis without myelopathy Lumbar radiculopathy Lumbar DDD Plan: 1. Explanation: Opioid and psychological risk scores were reviewed. Diagnoses, prognoses, and multiple treatment options including but not limited to physical therapy, interventional therapies, adjuvant medical therapies, narcotic medication therapies, and surgery were discussed with the patient and all questions were answered to the patient's satisfaction. 2. Opioid agreement: Signed with the patient and the patient is warned not to use opioids while driving or before driving and not to combine opioids with benzodiazepines or alcohol. 3. Counseling: The patient was counseled extensively on SMOKING CESSATION, BODY MASS INDEX, EXERCISE. Specifically, the patient was instructed regarding the importance of smoking cessation, obesity, and exercise in the context of both chronic pain and overall health. 4. Procedures: Scheduled for diagnostic lumbar medial branch block on the left side for levels L3 4, L4-L5 And L5-S1 5. Consultations: None 6. Investigations: None 7. Medications: Continue Neurontin 1800 mg a day 8. Disposition: Return to clinic in 4 weeks 9. Maps were reviewed and were appropriate.
[2019-10-31 10:18] VITALS: BP 133/76; PULSE 68; RESP 14; TEMP 98.3
== END | disposition home or self-care (01) ==
LOC: PNWHC3 09:20
PROVIDERS: ATTEND Anesthesiology
DX: M51.16 Intervertebral disc disorders with radiculopathy, lumbar region (principal); M47.26 Other spondylosis with radiculopathy, lumbar region; G89.29 Other chronic pain; Z79.899 Other long term (current) drug therapy
CPT/HCPCS: 99211

== ENCOUNTER 2019-11-17 08:17 | Day surgery (SDC) | payer BC ==
[2019-11-15 14:26] VITALS: BMI 31.6
[~2019-11-17 08:17] MED LIST changes: -IOPAMIDOL M200 10 ML VIAL ONE; -IV FLUID CONTINUATION 1,000 ML IV ONE; -LIDOCAINE 1% (10MG/ML) FOR IV START INTRADERMA ONE; -MIDAZOLAM 2 MG/2 ML VIAL ONE; -fentaNYL (PF) 50 MCG/ML 2 ML AMP ONE; -methylPREDNISolone ACETATE 80 MG/ML 1 ML VIAL ONE
[2019-11-17 08:32] VITALS: RESP 16; TEMP 97
[2019-11-17] MEDS ORDERED: LIDOCAINE 1% (10MG/ML) FOR IV START INTRADERMA ONE (08:36)
[2019-11-17] MEDS ORDERED: methylPREDNISolone ACETATE 40 MG/ML 1 ML VIAL ONE (09:25)
[2019-11-17] MEDS ORDERED: ROPIVACAINE 5MG/ML 20ML VIAL ONE (09:25)
[2019-11-17] MEDS ORDERED: MIDAZOLAM 2 MG/2 ML VIAL ONE (09:25)
[2019-11-17] MEDS ORDERED: fentaNYL (PF) 50 MCG/ML 2 ML AMP ONE (09:25)
--- NOTE | 2019-11-17 09:40 | P.PCN ---
Date of Procedure: 11/17/19 Procedure(s) Performed: PREOPERATIVE DIAGNOSIS : 1- Lumbar spondylosis with Facet Arthropathy without myelopathy . 2- Lumber degenerative disc disease POSTOPERATIVE DIAGNOSIS: 1- Lumbar spondylosis with Facet Arthropathy without myelopathy . 2- Lumber degenerative disc disease PROCEDURE: Diagnostic Left L2 ,L3 , L4 , and L5 medial branch block under fluoroscopy guidance(fluoroscopy images available in the radiology Department ) ( To target the facet joint between left L3-4 ,L4-5 , and L5-S1 ) ANESTHESIA:, moderate sedation with intravenous Versed 2 mg and Fentanyl 50 mcg. EBL: Minimal COMPLICATION: None PROCEDURE INDICATION: Chronic low back pain secondary to Facet arthropathy unresponsive to conservative treatment. PROCEDURE DESCRIPTION: the patient was seen and identified in the preop holding area , risks and benefits and possible complications of the procedure and alternative were discussed with the patient, and the patient agreed to proceed with the procedure and signed the consent and vital signs monitored during the procedure and fluoroscopy was used to maximize the benefit and accuracy of the needle placement, and sedation was given to decrease patient anxiety, patient was taken to the procedure room and placed in prone position vital signs monitored in the back prepped with chlorhexidine X3 then under strict sterile technique using a right oblique fluoroscopy ,the junction of the transverse process and the superior articulating process of the Left L2 , L3 , L4 , and L5 vertebra which corresponding to the fluoroscopy image of the eye of the [place]tw[place] dog on the block side for the medial branches and subsequently , after local infiltration of skin and subcu tissuies with Ropivacaine 0.5 % , one mL at each level ,then 22-gauge Quincke-type needles , 4 needle was used , each one of them placed at the junction of the base of the transverse process and the superior articular process at the appropriate level, and the needle was advanced until the periosteum contacted, needle placement confirmed with AP oblique and lateral view and after appropriate needle placement confirmed, and after negative aspiration for heme and CSF and there was no paresthesia 2 mL of Ropivacaine 0.5% mixed with 40 mg Depo-Medrol , then half mL injected at each level after negative aspiration the needle subsequently removed . At the end of the procedure and the needles removed and a bandage applied after the skin was cleaned the cleaning solution patient taken to recovery room in stable condition and monitors in the recovery room for 20-30 minutes and discharged home in stable condition after discharge criteria met and patient will follow up with the pain clinic in 2-4 weeks
[2019-11-17] MEDS ORDERED: IV FLUID CONTINUATION 700 ML IV ONE (09:41)
--- NOTE | 2019-11-17 09:47 | FL ---
Fluoroscopy INDICATION: Pain FINDINGS: Fluoroscopy time: 5 seconds. Images obtained: 2. IMPRESSIONS: 1. Documentation of fluoroscopy.
[2019-11-17 10:10] VITALS: BP 125/79; PULSE 67
== END 2019-11-17 10:25 | disposition home or self-care (01) ==
LOC: ORPAIN 08:17
PROVIDERS: ATTEND Specialist
DX: G89.29 Other chronic pain (principal); M47.816 Spondylosis without myelopathy or radiculopathy, lumbar region
CPT/HCPCS: 64493; 64494; 64495; J2250; J1030; J3010; J2795

== ENCOUNTER 2019-12-08 11:29 | Day surgery (SDC) | payer BC ==
[2019-12-06 10:32] VITALS: BMI 31.1
[2019-12-08 12:58] VITALS: TEMP 96.9
[2019-12-08 13:03] LABS: Glucose,Whole Blood 91 mg/dL (75-99)
[2019-12-08] MEDS ORDERED: MIDAZOLAM 2 MG/2 ML VIAL ONE (13:21)
[2019-12-08] MEDS ORDERED: ROPIVACAINE 5MG/ML 20ML VIAL ONE (13:21)
[2019-12-08] MEDS ORDERED: fentaNYL (PF) 50 MCG/ML 2 ML AMP ONE (13:21)
[2019-12-08] MEDS ORDERED: methylPREDNISolone ACETATE 40 MG/ML 1 ML VIAL ONE (13:21)
--- NOTE | 2019-12-08 13:39 | P.PCN ---
Date of Procedure: 12/08/19 Procedure(s) Performed: PREOPERATIVE DIAGNOSIS : 1- Lumbar spondylosis with Facet Arthropathy without myelopathy . 2- Lumber degenerative disc disease POSTOPERATIVE DIAGNOSIS: 1- Lumbar spondylosis with Facet Arthropathy without myelopathy . 2- Lumber degenerative disc disease PROCEDURE: Diagnostic Left L2 ,L3 , L4 , and L5 medial branch block under fluoroscopy guidance(fluoroscopy images available in the radiology Department ) ( To target the facet joint between left L3-4 ,L4-5 , and L5-S1 ) # 2 diagnostic block ANESTHESIA:, moderate sedation with intravenous Versed 2 mg and Fentanyl 50 mcg. EBL: Minimal COMPLICATION: None PROCEDURE INDICATION: Chronic low back pain secondary to Facet arthropathy unresponsive to conservative treatment. PROCEDURE DESCRIPTION: the patient was seen and identified in the preop holding area , risks and benefits and possible complications of the procedure and alternative were discussed with the patient, and the patient agreed to proceed with the procedure and signed the consent and vital signs monitored during the procedure and fluoroscopy was used to maximize the benefit and accuracy of the needle placement, and sedation was given to decrease patient anxiety, patient was taken to the procedure room and placed in prone position vital signs monitored in the back prepped with chlorhexidine X3 then under strict sterile technique using a right oblique fluoroscopy ,the junction of the transverse process and the superior articulating process of the Left L2 , L3 , L4 , and L5 vertebra which corresponding to the fluoroscopy image of the eye of the [place]tw[place] dog on the block side for the medial branches and subsequently , after local infiltration of skin and subcu tissuies with Ropivacaine 0.5 % , one mL at each level ,then 22-gauge Quincke-type needles , 4 needle was used , each one of them placed at the junction of the base of the transverse process and the superior articular process at the appropriate level, and the needle was advanced until the periosteum contacted, needle placement confirmed with AP oblique and lateral view and after appropriate needle placement confirmed, and after negative aspiration for heme and CSF and there was no paresthesia 2 mL of Ropivacaine 0.5% mixed with 40 mg Depo-Medrol , then half mL injected at each level after negative aspiration the needle subsequently removed . At the end of the procedure and the needles removed and a bandage applied after the skin was cleaned the cleaning solution patient taken to recovery room in stable condition and monitors in the recovery room for 20-30 minutes and disch arged home in stable condition after discharge criteria met and patient will follow up with the pain clinic in 2-4 weeks
[2019-12-08] MEDS ORDERED: IV FLUID CONTINUATION 1,000 ML IV ONE ×2 (13:42)
[2019-12-08 14:19] VITALS: BP 148/82; PULSE 63; RESP 16
--- NOTE | 2019-12-08 18:11 | FL ---
EXAMINATION TYPE: FL guided pain mgmt statistic DATE OF EXAM: 12/08/2019 FLUOROSCOPY Fluoroscopy time of 5 seconds was used during left lumbar facet block. 2 image/s document/s the proc edure.
== END 2019-12-08 14:17 | disposition home or self-care (01) ==
LOC: ORPAIN 11:29
PROVIDERS: ATTEND Specialist
DX: G89.29 Other chronic pain (principal); M47.816 Spondylosis without myelopathy or radiculopathy, lumbar region; M51.36 Other intervertebral disc degeneration, lumbar region
CPT/HCPCS: 64493; 64494; 64495; J2250; J1030; J3010; J2795

== ENCOUNTER → 2019-12-28 | Outpatient (CLI) | payer BC ==
[2019-12-28 09:41] VITALS: BP 148/76; PULSE 77; RESP 16; TEMP 98.3
--- NOTE | 2019-12-28 10:12 | P.PN ---
Subjective Progress Note Date: 12/28/19 This is a follow-up visit for this 64 years old male with a chronic history of severe low back pain, is diagnosed with lumbar degenerative disc disease and lumbar spondylosis with lumbar facet arthropathy, recently we did diagnostic medial branch block lumbar area x2 , patient reported that his pain was 7/10 before the first diagnostic block and he dropped to 2/10 after the block, and he had similar result after the second diagnostic block, his pain is mostly on the left side, he denies any motor or sensory deficit he denies any change in the bowel movement or urination Objective - Vital Signs Vital signs: Vital Signs Temp 98.3 F 12/28/19 09:33 Pulse 77 12/28/19 09:33 Resp 16 12/28/19 09:33 BP 148/76 12/28/19 09:33 Pulse Ox 96 12/28/19 09:33 - Constitutional Constitutional Comment(s): Physical Examinations : -Constitutiona : Cooperative , not in acute distress . -HEENT : nech : supple , no Lymphadenopathy , normal thyroid size . : eyes : no ptosis , no icterus, no photophobia . - neurologic : Cranial nerve II to XII intact , no focal neurological deffecit . -psychatric : alert , oriented X 3 , appropriate affect , intact judgment and insight . -Lymphatic : no Lymphadenopathy . - musculoskeltal : Lumber spine moter stegnth lower extremities ,thigh and legs 5/5 Right side , 5/5 Left side deep tendon reflexes : normal Knee Jerk , normal ankle Jerk lumber facet Loading Test =negative Right , positive Left Assessment and Plan Plan: Assessment and plan=1-lumbar spondylosis with lumbar facet arthropathy without myelopathy. 2-lumbar degenerative disc disease. Patient had more than 70% improvement of his low back pain after diagnostic medial branch block. He will be good candidate to help RFA of the medial branch left side at L2, L3, L4, L5 to denervates facet joints (L34,L45,L5-S1 ) - PQRS measures = - Patient's medications are documented in the chart. -Tobacco use is negative and counseling.Given. -Patient's has not received pneumococcal vaccine. -Advanced care planning discussed, patient not eligible. -Opiate contract not signed. -Pain positive and follow-up visit/procedure is scheduled. -Patient's blood pressure measured [ 148/76 ] , and documented in the record ,and patient will follow up with the primary care. -Patient's weight was measured and body mass index [ 31.2 ] above the normal limits and counseling was done. and patient instructed to follow-up with the primary care physician. -Patient was not identified as an unhealthy alcohol user Time with Patient: Less than 30
== END | disposition home or self-care (01) ==
LOC: PNWHC3 08:58
PROVIDERS: ATTEND Specialist
DX: M51.36 Other intervertebral disc degeneration, lumbar region (principal); M47.816 Spondylosis without myelopathy or radiculopathy, lumbar region
CPT/HCPCS: 99211

== ENCOUNTER 2020-01-27 08:47 | Day surgery (SDC) | payer BC ==
[2020-01-25 16:22] VITALS: BMI 31.1
[2020-01-27 09:02] VITALS: TEMP 97.5
[2020-01-27 09:11] LABS: Glucose,Whole Blood 87 mg/dL (75-99)
[2020-01-27] MEDS ORDERED: LIDOCAINE 1% (10MG/ML) FOR IV START INTRADERMA ONE (09:11)
[2020-01-27] MEDS ORDERED: ROPIVACAINE 5MG/ML 20ML VIAL ONE (10:02)
[2020-01-27] MEDS ORDERED: methylPREDNISolone ACETATE 40 MG/ML 1 ML VIAL ONE (10:02)
[2020-01-27] MEDS ORDERED: TRIAMCINOLONE ACETONIDE 40 MG/ML 1 ML VIAL ONE ×2 (10:02)
[2020-01-27] MEDS ORDERED: MIDAZOLAM 2 MG/2 ML VIAL ONE (10:02)
--- NOTE | 2020-01-27 10:30 | P.PCN ---
Date of Procedure: 01/27/20 Procedure(s) Performed: PREOPERATIVE DIAGNOSIS: 1-Lumbar Spondylosis with Facet Arthropathy without myelopathy. POSTOPERATIVE DIAGNOSIS: 1- Lumbar Spondylosis with Facet Arthropathy without myelopathy. PROCEDURES : Left Radiofrequency thermocoagulation L2 , L3 , L4 , and L5 medial branch, with fluoroscopic guidance (fluoroscopy images available in the radiology department) ( to denervate the facet joint at Left L3-4 ,L4-5 ,and L5-S1 levels ). ANESTHESIA: Monitored anesthesia care provided by anesthesia department. EBL: Minimal PROCEDURE INDICATION: The patient with low back pain secondary to lumbar facet arthropathy who had more than 50% relief of her pain with previous diagnostic lumbar medial branch block with bupivacaine. PROCEDURE DESCRIPTION / TECHNIQUE: The patient was seen and identified in the preoperative area. Risks, benefits, complications, including but not limited to risk of infection ,bleeding , allergic reactions to the medications and no complete pain releife , and alternatives were discussed with the patient, the patient agreed to proceed with the procedure and signed the consent. IV was started. Vital signs remained stable throughout the procedure. Patient was taken to the OR and time out was completed. The patient was placed in the prone position on the procedure table. The lumber area was prepped and draped in the usual sterile fashion. . Vital signs were closely monitored during the procedure .IV sedation was used during the procedure to decrease patients anxiety. Using AP and then oblique fluoroscopy, the ``eye of the Antwan dog corresponding to the connection between the superior and transverse articular processes of Left L2, L3, L4, and L5 were identified, marked, and localized with 1% lidocaine. Subsequently, a 18 [id number] radiofrequency cannula with a 10-mm active tip was advanced guided by fluoroscopy to each of the``eyes of the Antwan dog at Left L2 ,L3, L4, and L5. Each site then underwent sensory testing at 50 Hz and 0 to 1 volt and motor testing at 2.5 Hz and 0 to 3 volt with local stimulation, but no radicular symptoms down the legs. Thereafter each sites underwent radiofrequency thermocoagulation at 80 degrees celsius for 90 seconds after injecting 0.5 ml of PF Ropivacaine 1ml, then after the thermocoagulation done , 1 ml of the block solution containing Depo-Medrol 40 mg and 3 ml of Ropivacaine 0.5% was injected at the Left L2 ,L3 , L4 , and L5 , levels after negative aspiration of CSF and blood and with no paresthesias. Cannulas were retracted while injecting lidocaine 1% until the needle is out. At the end of the procedure, the skin was cleansed and bandages were applied. COMPLICATIONS: No acute complications. DISPOSITION / PLANS: The patient was placed in a supine position and transferred to the recovery area in a stable condition for observation and was discharged from the recovery room after meeting discharge criteria. Home discharge instructions given to the patient by the staff. The patient was reexamined prior to discharge. The patient will schedule a follow up in the clinic in 2-4 weeks.
[2020-01-27] MEDS ORDERED: IV FLUID CONTINUATION 1,000 ML IV ONE (10:31)
[2020-01-27 10:50] VITALS: BP 129/85; PULSE 76; RESP 16
--- NOTE | 2020-01-27 12:57 | FL ---
EXAMINATION TYPE: FL guided pain mgmt statistic DATE OF EXAM: 01/27/2020 FLUOROSCOPY Fluoroscopy time of 11 seconds seconds was used during lumbar radiofrequency ablation. 4 image/s doc ument/s the procedure.
== END 2020-01-27 11:01 | disposition home or self-care (01) ==
LOC: ORPAIN 08:47
PROVIDERS: ATTEND Specialist
DX: G89.29 Other chronic pain (principal); M47.816 Spondylosis without myelopathy or radiculopathy, lumbar region; I10 Essential (primary) hypertension; E78.5 Hyperlipidemia, unspecified; Z79.82 Long term (current) use of aspirin; Z79.899 Other long term (current) drug therapy
CPT/HCPCS: 64635; 64636 ×2; J2250; J1030; J2795

== ENCOUNTER → 2020-02-15 | Outpatient (CLI) | payer BC ==
[2020-02-15 10:16] VITALS: BP 148/83; PULSE 94; RESP 18; TEMP 97.9
--- NOTE | 2020-02-15 10:45 | P.PN ---
Subjective Progress Note Date: 02/15/20 This is a follow-up visit for this 64 years old man with a chronic history of severe low back pain, is diagnosed with lumbar spondylosis with lumbar facet arthropathy and lumbar degenerative disc disease, status post RFA of the left- sided medial branch lumbar area, patient reported that his pain improved s ignificantly he had very minimal pain he's able to function and do activities of daily livings without any difficulty, he denies any motor or sensory deficit he is very satisfied with the result of the treatment Objective - Vital Signs Vital signs: Vital Signs Temp 97.9 F 02/15/20 10:11 Pulse 94 02/15/20 10:11 Resp 18 02/15/20 10:11 BP 148/83 02/15/20 10:11 Pulse Ox 99 02/15/20 10:11 - Exam Physical Examinations : -Constitutiona : Cooperative , not in acute distress . -HEENT : nech : supple , no Lymphadenopathy , normal thyroid size . : eyes : no ptosis , no icterus, no photophobia . - neurologic : Cranial nerve II to XII intact , no focal neurological deffecit . -psychatric : alert , oriented X 3 , appropriate affect , intact judgment and insight . -Lymphatic : no Lymphadenopathy . - musculoskeltal : Lumber spine moter stegnth lower extremities ,thigh and legs 5/5 Right side , 5/5 Left side Assessment and Plan Plan: Assessment and plan= lumbar spondylosis with lumbar facet arthropathy without myelopathy Lumbar Degenerative disc disease. Pain improved after RFA of the left-sided medial branch lumbar area. Patient will follow up in the pain clinic when necessary - PQRS measures = - Patient's medications are documented in the chart. -Tobacco use is negative and counseling.Given. -Patient's has not received pneumococcal vaccine. -Advanced care planning discussed, patient not eligible. -Opiate contract signed. -Pain positive and follow-up visit/procedure is scheduled. -Patient's blood pressure measured [ 148/83] , and documented in the record ,and patient will follow up with the primary care. -Patient's weight was measured and body mass index [ ] above the normal limits and counseling was done. and patient instructed to follow-up with the primary care physician. -Patient was not identified as an unhealthy alcohol user Time with Patient: Less than 30
== END | disposition home or self-care (01) ==
LOC: PNWHC3 09:18
PROVIDERS: ATTEND Specialist
DX: M51.36 Other intervertebral disc degeneration, lumbar region (principal); M47.816 Spondylosis without myelopathy or radiculopathy, lumbar region; Z98.890 Other specified postprocedural states
CPT/HCPCS: 99211

== ENCOUNTER → 2024-08-22 | Outpatient (CLI) | payer BC ==
[2024-08-22 08:44] VITALS: BP 144/83; PULSE 72; RESP 19
--- NOTE | 2024-08-22 09:38 | XR ---
EXAMINATION TYPE: XR lumbar spine 2 or 3V DATE OF EXAM: 08/22/2024 9:33 AM COMPARISON: None CLINICAL INDICATION: Male, 69 years old with history of M54.16; PHH, pain TECHNIQUE: XR lumbar spine 2 or 3V - Frontal, lateral and coned in L5-S1 lateral views of the spine. FINDINGS: No evidence of any acute osseous pathology. No evidence of loss of vertebral body height i s seen. There is normal alignment of the lumbar vertebral bodies. Scattered disc space narrowing. Mul tilevel marginal osteophyte formation throughout the visualized spine. There is facet joint arthropat hy throughout the spine. Scattered at least mild to moderate neural foraminal stenosis. Atheroscleros is of the arterial vasculature. IMPRESSION: 1. No acute fracture. 2. Moderate multilevel disc degeneration. [facility], , 08/22/2024 9:36 AM
--- NOTE | 2024-08-22 14:30 | P.PAINPG ---
PQRS Measure Charge Sheet Comment: HISTORY OF PRESENT ILLNESS: A 69 yr old male as a referral from Dr Emilio Gu presents today w severe and chronic LBP > 5 yrs secondary to radiculopathy, spondylosis and facet arthropathy without myelopathy for evaluation. Pt underwent a L RFA L2-L5 in 01/2020 where he experienced 75% pain relief x 2 yrs s/p procedure. Pt states pain level is provoked at 6 /10 in intensity, constant, localized in the L lumbar spine, predominantly axial, sharp in character w occasional shooting pain towards the L side of lumbar spine. Pain is provoked by walking/ standing for periods > 10 min. Pain is alleviated by physician guided home exercises from his PCP every day since June 2024, manual massage, heat, medications, repositioning and rest. He is physically fit and active daily, including pruning dozens of trees on his property throughout the year and fishing/ ice fishing. Oswestry axial pain score at 30. PMH: OA, Prostate CA, Hyperlipidemia, HTN PSH: Prostatectomy, Hernia Repair, Tonsillectomy, L RFA L2-L5 (02/04), ESIs L3- L4 x2 (2019) SH: Negative x3 FH: Mo- No Reported History All: See list Medications include Tyl REVIEW OF ORGAN SYSTEMS: CONSTITUTIONAL: No fevers or chills. No recent weight loss. NEUROLOGICAL: + numbness and tingling along the distal extremities. No seizure disorders or headaches. MUSCULOSKELETAL: + pain PSYCHIATRIC: Denies current depression or suicidal thoughts. Physical Examinations : Constitutional : Cooperative , not in acute distress . Neurologic : Cranial nerve II to XII intact. No focal neurological deficits. Psychiatric : alert & oriented x 3. Matching mood & appropriate affect. Judgment & insight intact. Musculoskeletal : Cervical Spine Motor strength in the deltoid and biceps: Normal right side. Normal Left side Motor strength biceps and the wrist extensors: Normal right side . Normal left side Motor strength in the triceps muscle: Normal right side. Normal left side Deep tendon reflexes: Normal at the biceps. Normal at Brachioradialis. Normal at triceps Vertebral body tenderness to deep palpation over Cervical facet loading test: positive bilaterally Spurling test: positive bilaterally Neck distraction test: positive bilaterally Bianca sign: positive bilaterally Lumbar spine Motor strength lower extremities ,thigh and legs 5/5 Right side , 5/5 Left side Deep tendon reflexes : Normal Knee Jerk. Normal Ankle Jerk Vertebral body tenderness over Pritchett Test positive Lumbar facet Loading Test: positive Right / positive Left L4-L5, L5-S1 Range of motion of the lumbar spine Flexion 30 degrees, extension 10 degrees Straight Leg Raise test: Left/ Right positive at degrees John test: positive right / positive left. Severe tenderness over the Sacroiliac joint on the Right / Left sides Gaenslen test: positive bilaterally Seated flexion test: positive bilaterally. Sacral spine : Severe tenderness over the Sacroiliac joint: right side / left side Range of motion: Flexion of the lumbar spine <60 degrees Range of motion: Extension of the lumbar spine <20 degrees Gaenslen's Test positive John test: positive right side / left side Thigh Thrust Test Sacral Thrust Test Imaging: None on file Assessment/ Plan : Lumbar radiculopathy Recommendation of x ray M54.16. All questions answered. I have spent greater than 30 minutes on patient care today. Dr Sparks was available by phone for the evaluation of this patient. The time was used to review the medical records including relevant urine studies and Prescription history (MAPs), review of the available imaging, evaluation and examination of the patient, coordination of care with the medical staff and if applicable referring physicians, as well as creation of the medical record - Pain Location Left Hip Pharmacological Interventions: Medication PQRS Narrative: Smoking Status Never smoker Narcotic Agreement Date Signed 09/16/19 Hx Alcohol Use (MH) Yes: DRINKS DAILY Home Medications: Ambulatory Orders Aspirin [Adult Low Dose Aspirin EC] 81 mg PO HS 04/06/19 Atorvastatin [Lipitor] 20 mg PO HS 04/06/19 Metoprolol Tartrate [Lopressor] 25 mg PO BID 04/06/19 amLODIPine [Norvasc] 10 mg PO HS 04/06/19 predniSONE 15 mg PO DAILY 12/06/19 Controlled Substance Measures - Controlled Substance Measures Is patient prescribed a controlled substance at discharge?: No
== END ==
LOC: PNWHC3 08:26
PROVIDERS: ATTEND Specialist
DX: M47.26 Other spondylosis with radiculopathy, lumbar region (principal)
CPT/HCPCS: 72100; 99212

== ENCOUNTER → 2024-08-26 | Outpatient (CLI) | payer BC ==
--- NOTE | 2024-08-26 18:09 | MR ---
INDICATION: Patient age:Male; 69 years old; Reason for study: M54.16 RADICULOPATHY, LUMBAR REGION; [facility]. COMPARISONS: #Radiograph 08/22/2024. TECHNIQUE: Multi planar, multi sequence imaging was performed utilizing: T1-weighted, T2-weighted, a nd turbo inversion recovery imaging of the lumbar spine. The patient was not given contrast. FINDINGS: The lumbar vertebral bodies do have preserved heights. Mild levocurvature of the lumbar sp ine with apex at L4. No spondylolisthesis. Prominent type II Modic changes involving the endplates ar ound the L5-S1 disc. Multilevel disc desiccation is present with multilevel disc height loss. Most pr ominent at L5-S1. Multilevel small Schmorl's nodes. Multilevel and The conus medullaris and the dist al spinal cord do appear unremarkable with regards to their signal intensity and morphology. Posterio r back subcutaneous edema. T12-L1: Left paracentral disc protrusion with mild effacement of the anterior thecal sac. No signific ant spinal canal stenosis. No neural foraminal stenosis. L1-L2: Diffuse disc bulge. No significant spinal canal stenosis. Mild right and moderate left neural foraminal stenosis. L2-L3: Broad-based disc bulge with ligamentum flavum buckling, bilateral facet arthropathy, and prom inent posterior epidural fat. Results in moderate spinal canal stenosis. Severe right and moderate le ft neural foraminal stenosis. L3-L4: Broad-based disc bulge with ligamentum flavum buckling, bilateral facet arthropathy, and prom inent posterior epidural fat. Results in mild spinal canal stenosis. Mild left and moderate right radha ral foraminal stenosis. L4-L5: Broad-based disc bulge with ligamentum flavum buckling and bilateral facet arthropathy. No sig nificant spinal canal stenosis. Mild to moderate left and mild right neuroforaminal stenosis. L5-S1: The intervertebral disc appears round on its contour posteriorly without significant mass eff ect upon the thecal sac. Annular fissure. Bilateral facet arthropathy. No significant neural foramina l stenosis. Other significant findings: Partial visualization of T2 hyperintensity within wall right renal cyst. Measures at least 2.8 cm. IMPRESSION: Moderate multilevel disc degeneration with associated osteoarthritic changes as described above. Most prominent at L2-L3 with moderate spinal canal stenosis [facility], , 08/26/2024 6:07 PM
== END | disposition home or self-care (01) ==
LOC: RADMRIMAIN 17:24
PROVIDERS: ATTEND Specialist
DX: M51.16 Intervertebral disc disorders with radiculopathy, lumbar region (principal); M48.061 Spinal stenosis, lumbar region without neurogenic claudication; M47.26 Other spondylosis with radiculopathy, lumbar region
CPT/HCPCS: 72148

== ENCOUNTER 2024-09-15 09:39 | Day surgery (SDC) | payer BC ==
[2024-09-15] MEDS: IV FLUID CONTINUATION 1,000 ML IV ONE ×2 (10:42→12:32)
[2024-09-15 10:56] VITALS: RESP 16; TEMP 97.6
[2024-09-15] MEDS: LACTATED RINGERS 1,000 ML IV SCH (11:07)
[2024-09-15] MEDS ORDERED: MIDAZOLAM 2 MG/2 ML VIAL ONE (12:03)
[2024-09-15] MEDS ORDERED: fentaNYL (PF) 50 MCG/ML 2 ML AMP ONE (12:03)
[2024-09-15] MEDS ORDERED: ROPIVACAINE 5 MG/ML 30 ML VIAL ONE (12:03)
--- NOTE | 2024-09-15 12:14 | P.PCN ---
Date of Procedure: 09/15/24 Procedure(s) Performed: PREOPERATIVE DIAGNOSIS : 1- Lumbar spondylosis with Facet Arthropathy without myelopathy . 2- Lumber degenerative disc disease POSTOPERATIVE DIAGNOSIS: 1- Lumbar spondylosis with Facet Arthropathy without myelopathy . 2- Lumber degenerative disc disease PROCEDURE: Diagnostic Left L3 , L4 , and L5 medial branch block under fluoroscopy guidance(fluoroscopy images available in the radiology Department ) ( To target the facet joint between left L4-5 , and L5-S1 )#1st ANESTHESIA:, moderate sedation with intravenous Versed 2 mg and Fentanyl 50 mcg. (Sedation start time 1203, end time 1210 ) EBL: Minimal COMPLICATION: None PROCEDURE INDICATION: Chronic low back pain secondary to Facet arthropathy unresponsive to conservative treatment. PROCEDURE DESCRIPTION: the patient was seen and identified in the preop holding area , risks and benefits and possible complications of the procedure and alternative were discussed with the patient, and the patient agreed to proceed with the procedure and signed the consent and vital signs monitored during the procedure and fluoroscopy was used to maximize the benefit and accuracy of the needle placement, and sedation was given to decrease patient anxiety, patient was taken to the procedure room and placed in prone position vital signs monitored in the back prepped with chlorhexidine X3 then under strict sterile technique using a right oblique fluoroscopy ,the junction of the transverse process and the superior articulating process of the Left L3 , L4 , and L5 vertebra which corresponding to the fluoroscopy image of the eye of the Antwan dog on the block side for the medial branches and subsequently , after local infiltration of skin and subcu tissuies with Ropivacaine 0.5 % , one mL at each level ,then 23 -gauge Quincke-type needles , 3 needle was used , each one of them placed at the junction of the base of the transverse process and the superior articular process at the appropriate level, and the needle was advanced until the periosteum contacted, needle placement confirmed with AP oblique and lateral view and after appropriate needle placement confirmed, and after negative aspiration for heme and CSF and there was no paresthesia 1.5 mL of Ropivacaine 0.5% used , then half mL injected at each level after negative aspiration the needle subsequently removed . At the end of the procedure and the needles removed and a bandage applied after the skin was cleaned the cleaning solution patient taken to recovery room in stable condition and monitors in the recovery room for 20-30 minutes and discharged home in stable condition after discharge criteria met and patient will follow up with the pain clinic in 2-4 weeks
--- NOTE | 2024-09-15 12:25 | FL ---
Fluoroscopy History: FL guided pain mgmt statistic lumbar facet block L side, 4sec fl time, [id number] [facility], , 09/15/2024 12:23 PM
[2024-09-15 12:34] VITALS: BP 123/74; PULSE 64
== END 2024-09-15 12:56 | disposition home or self-care (01) ==
LOC: ORPAIN 09:39
PROVIDERS: ATTEND Specialist
DX: M47.816 Spondylosis without myelopathy or radiculopathy, lumbar region (principal); M51.360 Other intervertebral disc degeneration, lumbar region with discogenic back pain only
CPT/HCPCS: 64493; 64494; J2250; J3010; J2795; 99152